=== PATIENT | male | born 1980 | race African-American/Black ===

== ENCOUNTER 2024-04-30 15:52 | Emergency (ER) | payer OTHER ==
[~2024-04-30] VITALS: Ht 177.8 cm; Wt 102.0 kg
[2024-04-30 16:00] VITALS: TEMP 98.3; O2SAT 97
[2024-04-30 16:54] LABS: BASOPHILS % 0.8 % (0.0-2.0); DIFFERENTIAL COMMENT 0; EOSINOPHILS % 1.3 % (0.0-5.0); HEMATOCRIT. 41.5 % (42.0-52.0); HEMOGLOBIN. 13.7 g/dL (14.0-18.0); LYMPHOCYTES % 35.7 % (20.0-50.0); MEAN CORPUSCULAR HEMOGLOBIN 26.2 pg (28.0-32.0); MEAN CORPUSCULAR HGB CONC 32.9 g/dL (31.0-37.0); MEAN CORPUSCULAR VOLUME 79.8 fL (80.0-94.0); MEAN PLATELET VOLUME 9.2 fl (7.4-10.4); NEUTROPHILS % 54.2 % (40.0-76.0); PLATELET 335 x1000/uL (130-400); RED CELL DISTRIBUTION WIDTH 14.4 % (11.6-14.6); WHITE BLOOD COUNT 8.8 x1000/uL (4.5-11.0)
[2024-04-30 17:01] LABS: CHLORIDE 94 mEq/L (98-107); POTASSIUM 4.2 mEq/L (3.5-5.1); SODIUM 133 mEq/L (136-145)
[2024-04-30 17:02] LABS: CALCIUM 11.1 mg/dL (8.7-10.4); CARBON DIOXIDE 23 mEq/L (21-32)
[2024-04-30 17:07] LABS: CREATININE 1.4 mg/dL (0.6-1.3); UREA NITROGEN BLOOD 17 mg/dL (9-23)
[2024-04-30 17:21] LABS: GLUCOSE 477 mg/dL (70-105)
[2024-04-30] MEDS: INSULIN LISPRO 100 UNITS/ML SUBCUT ONE (20:16)
[2024-04-30 20:24] VITALS: BP 140/74; PULSE 84; RESP 18; O2SAT 97
== END 2024-04-30 20:25 | disposition home or self-care (01) ==
LOC: ER 15:52
DX: E11.65 Type 2 diabetes mellitus with hyperglycemia (principal); E78.00 Pure hypercholesterolemia, unspecified; Z98.890 Other specified postprocedural states
CPT/HCPCS: 99283; 80048; 82962; 85025; 36415; J1815